=== PATIENT | male | born 1995 ===

== ENCOUNTER 2023-12-20 16:50 | Emergency (ER) | payer SELFPAY ==
[2023-12-20] MEDS: Diphtheria,Pertussis(Acell),Tetanus Vaccine 0.5 ML Syringe IM ONE (17:18)
[2023-12-20] MEDS: Ibuprofen 400 MG Tab PO ONE (17:20)
[2023-12-20] MEDS: Ondansetron 4 MG Tab.DIS PO ONE (17:20)
[2023-12-20] MEDS: Bacitracin Oint 1 GM U/D Packet TOP ONE (17:20)
[2023-12-20] MEDS: Lidocaine 1% 5 ML VIAL INJECT ONE (17:28)
[2023-12-20] MEDS: Take Home: Cephalexin 500 MG Cap, 6 Cap Pack PO ONE (18:59)
== END 2023-12-20 19:18 | disposition home or self-care (01) ==
LOC: DL.ED 16:50
DX: S62.636B Displaced fracture of distal phalanx of right little finger, initial encounter for open fracture (principal); Z23 Encounter for immunization; W23.1XXA Caught, crushed, jammed, or pinched between stationary objects, initial encounter; Y99.0 Civilian activity done for income or pay
CPT/HCPCS: 12001; 73140-F9; 90471; 90715; 99283; 99283-25; A9270-GY; J3490